=== PATIENT | male | born 1965 | race Caucasian/White ===

== ENCOUNTER 2018-01-22 12:39 | Day surgery (SDC) | payer OTHER ==
[~2018-01-22] VITALS: Ht 175.3 cm; Wt 85.6 kg
[2018-01-22 12:54] VITALS: BP 119/81; PULSE 73; TEMP 97.6
[2018-01-22] MEDS ORDERED: PRINIVIL10 MG PO (12:56)
[2018-01-22] MEDS ORDERED: GLUCOPHAGE850 MG/TAB PO (12:56)
[2018-01-22] MEDS ORDERED: ASPIRIN 81M81 MG/TA2 PO (12:57)
[2018-01-22] MEDS ORDERED: LIPITOR 80MG80 MG PO (12:57)
[2018-01-22 14:55] VITALS: BP 127/79; PULSE 67; TEMP 97.7
[2018-01-22 15:10] VITALS: BP 117/52; PULSE 80
[2018-01-22 15:25] VITALS: BP 115/78; PULSE 63
[2018-01-22 15:26] VITALS: BP 127/79; PULSE 67
== END 2018-01-22 15:45 | disposition home or self-care (01) ==
LOC: SDCO 12:39
DX: Z12.11 Encounter for screening for malignant neoplasm of colon (principal); Z80.0 Family history of malignant neoplasm of digestive organs; D12.3 Benign neoplasm of transverse colon; K57.30 Diverticulosis of large intestine without perforation or abscess without bleeding; K64.0 First degree hemorrhoids; E11.9 Type 2 diabetes mellitus without complications; I10 Essential (primary) hypertension; E78.00 Pure hypercholesterolemia, unspecified; Z79.84 Long term (current) use of oral hypoglycemic drugs; Z79.82 Long term (current) use of aspirin
CPT/HCPCS: OP; J2250; J2405; J3010; J7030